=== PATIENT | female | born 1995 | race Caucasian/White ===

== ENCOUNTER 2021-07-08 11:48 | Outpatient (CLI) | payer OTHER | END 2021-07-08 14:50 | disposition home or self-care (01) | LOC: GENOP 11:48 | DX: O98.513 Other viral diseases complicating pregnancy, third trimester (principal); U07.1 COVID-19; O47.03 False labor before 37 completed weeks of gestation, third trimester; Z91.040 Latex allergy status; Z3A.29 29 weeks gestation of pregnancy | CPT/HCPCS: 59025; 82731; U0002 ==